=== PATIENT | male | born 1955 | race Caucasian/White ===

== ENCOUNTER 2020-01-29 14:12 | Emergency (ER) | payer BC ==
[2020-01-29 14:22] VITALS: RESP 20; TEMP 98
[2020-01-29] MEDS ORDERED: MORPHINE SULFATE 4 MG/ML SYRINGE IVP STA (14:22)
[2020-01-29] MEDS ORDERED: ONDANSETRON 4 MG/2 ML VIAL IVP STA (14:22)
--- NOTE | 2020-01-29 14:32 | ED ---
Wound/Laceration HPI - General Chief Complaint: Wound/Laceration Stated Complaint: Head injury Time Seen by Provider: 01/29/20 14:18 Source: patient, EMS Mode of arrival: EMS Limitations: no limitations - History of Present Illness Initial Comments: Patient is a 64-year-old male, presenting to the emergency department via EMS for a large wound on top of his head. Patient states he walked outside to check on his truck when a tree branch fell on top of his head. Patient states it was a large tree branch. Patient notes he is bleeding from the top of his head and had his call the ambulance. Patient denies being on blood thinners. He denies loss of consciousness, nausea, vomiting. He denies blurry vision. He does admit to a 8-9/10 headache. Patient denies any pain anywhere else. He has no other complaints. Upon arrival to the ER, his vital signs are stable. - Related Data Home Medications Medication Instructions Recorded Confirmed Acetaminophen [Tylenol Extra 1,000 mg PO Q6H PRN 01/29/20 01/29/20 Strength] Ibuprofen 800 mg PO Q8H PRN 01/29/20 01/29/20 Metoprolol Succinate [Toprol XL] 50 mg PO DAILY 01/29/20 01/29/20 Naproxen Sodium [Aleve] 440 mg PO BID PRN 01/29/20 01/29/20 amLODIPine [Norvasc] 5 mg PO DAILY 01/29/20 01/29/20 cloNIDine HCL [Catapres] 0.1 mg PO BID 01/29/20 01/29/20 traMADol HCL 50 mg PO Q6H PRN 01/29/20 01/29/20 Previous Rx's Medication Instructions Recorded Cephalexin [Keflex] 500 mg PO BID 5 Days #10 cap 01/29/20 Allergies Allergy/AdvReac Type Severity Reaction Status Date / Time No Known Allergies Allergy Verified 01/29/20 15:14 Review of Systems ROS Statement: Those systems with pertinent positive or pertinent negative responses have been documented in the HPI. ROS Other: All systems not noted in ROS Statement are negative. Past Medical History Past Medical History: Hypertension History of Any Multi-Drug Resistant Organisms: None Reported Past Psychological History: No Psychological Hx Reported Smoking Status: Current some day smoker Past Alcohol Use History: None Reported Past Drug Use History: Marijuana General Exam - General Exam Comments Initial Comments: GENERAL: Well-appearing, well-nourished and in no acute distress. HEAD: normocephalic. Patient has a large laceration to the superior portion of his skull measuring 8 cm, with a smaller laceration to the side of the main one measuring 3 cm. Bleeding is minimal at this time and controlled with bandage. No signs of basal skull fracture. EYES: Pupils equal round and reactive to light, extraocular movements intact, sclera anicteric, conjunctiva are normal. ENT: TMs normal, nares patent, oropharynx clear without exudates. Moist mucous membranes. No septal hematoma. NECK: Normal range of motion, supple without lymphadenopathy or JVD. No midline tenderness. LUNGS: Breath sounds clear to auscultation bilaterally and equal. No wheezes rales or rhonchi. HEART: Regular rate and rhythm without murmurs, rubs or gallops. ABDOMEN: Soft, nontender, normoactive bowel sounds. No guarding, no rebound. No masses appreciated. : Deferred EXTREMITIES: Normal range of motion, no pitting or edema. No clubbing or cyanosis. NEUROLOGICAL: Cranial nerves II through XII grossly intact. Normal speech, normal gait. PSYCH: Normal mood, normal affect. SKIN: Warm, Dry, normal turgor, no rashes. Limitations: no limitations Course Vital Signs 01/29/20 01/29/20 01/29/20 14:18 14:22 15:22 Temperature 98 F Pulse Rate 72 66 Respiratory 20 20 20 Rate Blood Pressure 151/84 144/78 O2 Sat by Pulse 98 96 Oximetry 01/29/20 01/29/20 01/29/20 16:00 17:00 17:07 Temperature Pulse Rate 70 70 70 Respiratory 20 20 20 Rate Blood Pressure 145/88 145/88 O2 Sat by Pulse 96 96 96 Oximetry Procedures - Laceration Laceration #1 Consent Obtained: verbal consent Indication: laceration Site: scalp Size (cm): 11 (8cm +3cm smaller =11cm) Description: linear, irregular Depth: simple, single layer Anesthetic Used: lidocaine 1% Anesthesia Technique: local infiltration Amount (mls): 7 Pre-repair: irrigated extensively Patient Tolerated Procedure: well Additional Comments: Patient's wound was closed with 13 lynn. Medical Decision Making - Medical Decision Making Patient is a 64-year-old male presenting after head injury. Patient has a large laceration to the top of his head measuring 8 cm with a smaller one measuring 3 cm. No loss of consciousness, no blood thinners. No nausea or vomiting. Patient was given morphine and Zofran secondary to headache. CT of the brain and neck showed no acute processes. Patient's wound was irrigated with 1 L of sterile water, closed with 13 lynn. Patient tolerated procedure well. Patient states his headache has improved. Patient was reassessed and states his headache is minimal. His vital signs remained stable. She'll started on antibiotics. He'll follow up with PCP. Strict return parameters were discussed with the patient he verbalizes understanding. Case discussed with Dr. Doss Disposition Clinical Impression: Laceration of scalp, Head injury Disposition: HOME SELF-CARE Condition: Stable Instructions (If sedation given, give patient instructions): [facility] (ED) Additional Instructions: Please return to the Emergency Department if symptoms worsen or any other concerns. Use ice to the head as well as Tylenol or ibuprofen for pain. Follow-up with PCP in 1-3 days. Lynn need to removed in 7-10 days. Prescriptions: Cephalexin [Keflex] 500 mg PO BID 5 Days #10 cap Is patient prescribed a controlled substance at d/c from ED?: No Referrals: Lane Mittal DO [Primary Care Provider] - 1-2 days
--- NOTE | 2020-01-29 15:18 | CT ---
EXAMINATION TYPE: CT brain cspine wo con DATE OF EXAM: 01/29/2020 COMPARISON: NONE HISTORY: Tree branch fell on head, large laceration on top. Head and neck pain. CT DLP: 1692.7 mGycm. Automated Exposure Control for Dose Reduction was Utilized. TECHNIQUE: CT scan of the head and cervical spine are performed without contrast. FINDINGS: There is no acute intracranial hemorrhage, mass effect, or midline shift identified. The ventricles and sulci are within normal limits in size. The globes are intact and the visualized sin uses are clear other than very scant mucosal thickening of the sphenoid and right maxillary sinus as well as the ethmoid sinuses. There is a large laceration of the right frontal scalp extending to the external table of the calvarium with overlying contusion and small hematoma measuring 6 mm in greates t thickness. Bilateral ritika bullosa are incidentally seen. Mastoid air cells are well aerated. Cervical spine is visualized in its entirety from C1 through upper thoracic levels and demonstrates s atisfactory alignment without evidence of acute fracture or dislocation. Prevertebral soft tissue ap pears within normal limits. The C1-C2 articulation is unremarkable. Incidentally noted bovine aorti c arch and enlargement of main pulmonary artery measuring 4.5 cm suggesting underlying pulmonary halley ry hypertension. Scattered areas of atelectasis are seen within the lung apices. Reversal of the usua l cervical lordosis is likely related to patient positioning. Mild to moderate degenerative change of the cervical spine is seen with small posterior disc osteophyte complexes at C5-C6 and C6-C7. IMPRESSION: 1. There is no acute fracture or dislocation evident in the cervical spine. 2. No acute intracranial hemorrhage, mass effect, or midline shift is seen. 3. Large right frontal scalp laceration extending to the outer table of the calvarium with associated small 6 mm scalp hematoma. 4. Mild to moderate multilevel degenerative disc disease of the cervical spine.
[2020-01-29] MEDS ORDERED: LIDOCAINE 1% INJ 10MG/ML (20 ML MDV) SQ ONE (15:28)
[2020-01-29] MEDS ORDERED: CEPHALEXIN 500 MG CAP PO STA (16:23)
[2020-01-29] MEDS ORDERED: DIPH,PERTUS(ACELL)TETVAC-LF 0.5 ML VIAL IM ONE (16:23)
[2020-01-29 17:08] VITALS: BP 145/88; PULSE 70
== END 2020-01-29 17:24 | disposition home or self-care (01) ==
LOC: EC 14:12
DX: S01.01XA Laceration without foreign body of scalp, initial encounter (principal); I10 Essential (primary) hypertension; F17.200 Nicotine dependence, unspecified, uncomplicated; Z79.899 Other long term (current) drug therapy; Z23 Encounter for immunization; W22.8XXA Striking against or struck by other objects, initial encounter; Y93.89 Activity, other specified
CPT/HCPCS: 72125; 70450; 90715; 99284; 96374; 96375; 12004; 90471; J2270; J2405; J2001

== ENCOUNTER → 2024-10-21 | Outpatient (CLI) | payer MEDICARE ==
[2024-10-21 12:41] LABS: African American GFR (CKD) >90 (>60 ml/min/1.73 sqM); Blood Urea Nitrogen 20 mg/dL (9-20); Non-African American GFR(CKD) >90 (>60 ml/min/1.73 sqM)
--- NOTE | 2024-10-21 14:19 | CT ---
"EXAMINATION TYPE: CT angio thor/abd pel aorta CT DLP: 1729 mGycm, Automated exposure control for dose reduction was used. DATE OF EXAM: 10/21/2024 1:24 PM COMPARISON: None. CLINICAL INDICATION:Male, 68 years old with history of I71.02 DISSECTION OF ABDOMINAL AORTA; PHH, dis section of abdominal aorta TECHNIQUE: Dissection protocol: Multiple axial CT images of the chest, abdomen, and pelvis were obtai ligia prior and to the administration of IV contrast. 3-D reformats and maximum intensity projection fo rmat were performed on a separate workstation. Then the abdomen was scanned after administration of 1 00 cc of Isovue 370 IV contrast. FINDINGS: ARTERIAL VASCULATURE: Bovine aortic arch. Minimal atherosclerotic plaque of the aorta and its branche s. No evidence for intramural hematoma. There is a dissection with intimal flap identified involving the descending thoracic aorta beginning at the level of the T8 vertebral body. There is enhancement i dentified within the false lumen with mural thrombus identified in its superior aspect. The dissectio n extends throughout the abdominal aorta into the right common iliac artery and proximal right cable layer al iliac artery. There is aneurysmal dilatation of the descending thoracic aorta measuring up to 5.6 cm and extends to the hiatus (series 8, image 100). No abdominal aortic aneurysm. Great arch vessels are patent. The celiac axis and SMA are primarily supplied by the true lumen with questionable supplied by the false lumen also (series 8, image 133 and 142). The left renal artery nguyễn pplied by the true lumen is widely patent. The right renal artery is supplied by the false lumen and is widely patent. The DEVAUGHN originates off the false lumen and is patent. The left common iliac artery is widely patent and originates off the true lumen. The left internal and external iliac arteries are widely patent. The visualized portions of the left common femoral artery is widely patent. The visua lized portion of the left superficial and deep femoral arteries are widely patent. The right common iliac artery is supplied by the true and false lumens. The right internal iliac halley ry is supplied by the true lumen and is widely patent. The right external iliac artery is patent. The visualized right common femoral artery is widely patent. The visualized right superficial and deep f emoral arteries are widely patent. PULMONARY ARTERIAL VASCULATURE: Dilated main pulmonary artery measuring up to 4.8 cm consistent with pulmonary arterial hypertension. No evidence of filling defect to suggest pulmonary embolus. VENOUS SYSTEM: Unremarkable. Lungs/pleura: No pleural effusion, pneumothorax, focal consolidation. Minimal subsegmental atelectasi s within the left lower lobe. Elevation of the left hemidiaphragm. No suspicious pulmonary nodule or mass. Heart: Mildly enlarged. Small coronary calcifications. No pericardial effusion. Mediastinum: No evidence of adenopathy. Lower Neck: No significant findings. Abdomen: Liver: Unremarkable. Gallbladder and Bile ducts: Cholelithiasis. No biliary ductal dilatation. Pancreas: Unremarkable. Spleen: Unremarkable. Adrenal glands: Unremarkable. Kidneys and Ureters: No hydronephrosis. No renal calculi. Slight asymmetrical enhancement of the righ t communicating compared to the left due to supply from the false lumen. No significant cortical atro phy at this time. Nonspecific bilateral perinephric fat stranding. Stomach and Bowel: No focal bowel wall thickening or surrounding inflammatory changes. The appendix i s within normal limits. Distal colonic diverticulosis without evidence for acute diverticulitis. No e vidence of bowel obstruction. Peritoneum: No evidence of pneumoperitoneum, free fluid, or adenopathy. Bladder: Unremarkable. Reproductive: Unremarkable. Abdominal wall/soft tissues: Fat filled bilateral inguinal hernias. Musculoskeletal: The osseous structures appear intact. Degenerative disc disease most pronounced at L 5-S1. Degenerative changes of the bilateral SI joints with anterior bridging. IMPRESSION: 1. 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 Aneurysmal dilatation of the descending thoracic aorta at the beginning of the dissectio n extending to the aortic hiatus measuring up to 5.6 cm. No imaging comparison available. 2. Dilated main pulmonary artery consistent with pulmonary arterial hypertension. 3. Colonic diverticulosis without evidence for acute diverticulitis. 4. Cholelithiasis. A [place] level critical message alert has been initiated for Michael Humphrey DO via the [email or web address] 60 | Critical Results System on 10/21/2024 2:16 PM. This message alert has been sent to Michael pierre DO via the preferences provided by the clinician for the receipt of Radiology Critical Findings. Message ID [id number]. [facility], , 10/21/2024 2:16 PM"
== END | disposition home or self-care (01) ==
LOC: RADCTMAIN 11:57
PROVIDERS: ATTEND Surgery
DX: I71.012 Dissection of descending thoracic aorta (principal); K57.30 Diverticulosis of large intestine without perforation or abscess without bleeding; K80.20 Calculus of gallbladder without cholecystitis without obstruction
CPT/HCPCS: 82565; 84520; 71275; 74174; Q9967